=== PATIENT | female | born 1995 | race Caucasian/White ===

== ENCOUNTER → 2017-06-21 | Outpatient (CLI) | payer OTHER ==
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
== END | disposition home or self-care (01) ==
LOC: PMG 15:08
PROVIDERS: ATTEND General Practice
DX: S20.211A Contusion of right front wall of thorax, initial encounter (principal); Y08.89XA Assault by other specified means, initial encounter; Y93.89 Activity, other specified; Y92.89 Other specified places as the place of occurrence of the external cause; Y99.8 Other external cause status
CPT/HCPCS: 71100

== ENCOUNTER 2017-08-13 20:42 | Emergency (ER) | payer SELFPAY ==
[~2017-08-13] VITALS: Ht 162.6 cm; Wt 68.0 kg
[2017-08-13 21:34] LABS: BILIRUBIN,URINE NEG (NEG); CLARITY,URINE HAZY; COLOR,URINE YELLOW; GLUCOSE,URINE NEG (NEG)
[2017-08-13 21:36] LABS: NITRITE,URINE NEG (NEG); UROBILINOGEN,URINE 0.2 mg/dL (0.2 mg/dL)
[2017-08-13 21:37] LABS: BACTERIA,URINE FEW /HPF (0-FEW); RBC,URINE OCC /HPF (0-2); SQUAMOUS EPITHELIAL CELL,UR MOD /LPF; WBC,URINE OCC /HPF (0-4)
[2017-08-13] MEDS ORDERED: KETOROLAC 60 MG/2 ML VIAL. IM ONE (21:45)
--- NOTE | 2017-08-13 22:30 | PHYS DOC ---
Past History Past Medical History: No Pertinent History Past Surgical History: No Surgical History Alcohol Use: Occasionally Drug Use: None Adult General Chief Complaint Chief Complaint: ABDOMINAL PAIN HPI HPI Patient is a 22 year old female who presents with abdominal pain. The patient reports 2 week history of left lower abdominal/pelvic pain with lower back pain. Reports having abnormally short menstrual period earlier this month, 1 day rather than 4-5 which is typical for her. Reports vaginal discharge. She denies fevers/chills, nausea, vomiting, diarrhea, constipation, dysuria/ hematuria, vaginal bleeding. She denies past medical history or abdominal surgeries. Possible STD exposure, requests testing but declines treatment. Review of Systems Review of Systems Constitutional: Denies fever or chills HENT: Denies nasal congestion or sore throat Respiratory: Denies cough or shortness of breath Cardiovascular: Denies chest pain or edema GI: Reports abdominal pain, denies nausea, vomiting, bloody stools or diarrhea : Denies dysuria or hematuria Musculoskeletal: Reports back pain Integument: Denies rash or skin lesions Neurologic: Denies headache, focal weakness or sensory changes All other systems were reviewed and found to be within normal limits, except as documented in this note. Current Medications Current Medications Current Medications Medications (Trade) Dose Ordered Sig/Tri Start Time Stop Time Status Last Admin Dose Admin Ketorolac Tromethamine (Toradol) 60 mg 1X ONCE 08/13/17 21:45 08/13/17 21:46 DC 08/13/17 21:46 60 MG Allergies Allergies Allergies Coded Allergies Type Severity Reaction Last Updated Verified Penicillins Allergy Unknown 08/13/17 Yes azithromycin Allergy Unknown 08/13/17 Yes latex Allergy Unknown 08/13/17 Yes Uncoded Allergies Type Severity Reaction Last Updated Verified Controls Adverse Reaction Unknown 08/13/17 Physical Exam Physical Exam Constitutional: Well developed, well nourished, no acute distress, non-toxic appearance. HENT: Normocephalic, atraumatic, bilateral external ears normal, oropharynx moist, nose normal. Eyes: PERRLA, EOMI, conjunctiva normal, no discharge. Neck: supple, no stridor. Cardiovascular: RRR, no murmurs, no edema. Lungs & Thorax: LCTAB, no wheezing, no respiratory distress. Abdomen: soft, left lower quadrant/pelvic tenderness without rebound/guarding, no masses or pulsatile masses, otherwise nontender, nondistended. Skin: Warm, dry, no erythema, no rash. Back: No CVA tenderness. Extremities: No tenderness, no edema. Neurologic: Alert and oriented X 3, no focal deficits noted. Psychologic: Affect normal, judgement normal, mood normal. Current Patient Data Vital Signs Vital Signs Date Time Temp Pulse Resp B/P (MAP) Pulse Ox O2 Delivery O2 Flow Rate FiO2 08/13/17 20:42 88 20 100 Room Air Lab Results Laboratory Tests Test 08/13/17 20:07 08/13/17 20:50 POC Urine HCG, Qualitative hcg negative (Negative) Urine Collection Type Unknown Urine Color Yellow Urine Clarity Hazy Urine pH 7.0 Urine Specific [place] 1.020 Urine Protein Neg (NEG-TRACE) Urine Glucose (UA) Neg mg/dL (NEG) Urine Ketones (Stick) Neg mg/dL (NEG) Urine Blood Neg (NEG) Urine Nitrite Neg (NEG) Urine Bilirubin Neg (NEG) Urine Urobilinogen Dipstick 0.2 mg/dL (0.2 mg/dL) Urine Leukocyte Esterase Neg (NEG) Urine RBC Occ /HPF (0-2) Urine WBC Occ /HPF (0-4) Urine Squamous Epithelial Cells Mod /LPF Urine Bacteria Few /HPF (0-FEW) Urine Mucus Slight /LPF EKG EKG [] Radiology/Procedures Radiology/Procedures PROCEDURE: PELVIS COMPLETE EXAM: PELVIC ULTRASOUND. HISTORY: Left pelvic pain. COMPARISON: None. FINDINGS: Sonographic evaluation of the pelvis was performed transabdominally and transvaginally. The uterus is anteverted and measures 8.9 x 5.3 x 4.8 cm. The endometrial stripe measures 18 mm. No masses are identified. There is no significant free fluid. The right ovary measures 2.8 x 1.8 x 1.4 cm. The left ovary measures 4.1 x 2.1 x 2.0 cm. There is normal Doppler flow bilaterally. There are no suspicious lesions. IMPRESSION: 1. Prominent endometrium at 18 mm. This can be normal in a premenopausal patient. Correlate with the patient's menstrual cycle. 2. No cause for acute pain is identified. Electronically signed by: Basim Sandoval MD (08/14/2017 12:09 AM) [facility] DICTATED AND SIGNED BY: VIDAL SANDOVAL MD DATE: 08/14/17 0007 [] Course & Med Decision Making Course & Med Decision Making Pertinent Labs and Imaging studies reviewed. (See chart for details) The patient presents with pelvic pain. Administered Toradol for pain. Obtained UA, performed pelvic exam with cultures. Patient did not wish to be empirically treated for sexual transmitted infection. Obtained ultrasound which shows no acute pelvic pathology. Pain improved with treatment. Recommend rest, hydration , Tylenol or ibuprofen for pain, follow-up with primary care or gynecology within 2-3 days if not improving. Return to the emergency department for high fever, severe pain, uncontrolled vomiting, any otherwise worsening condition. Discharged home in stable condition. [] Dragon Disclaimer Dragon Disclaimer This electronic medical record was generated, in whole or in part, using a voice recognition dictation system. Departure Departure: Impression: Primary Impression: Pelvic pain Disposition: 01 HOME, SELF-CARE Condition: STABLE Referrals: DYLLAN MARIA APRN (PCP) Patient Instructions: Pelvic Pain, Female, [id number] Additional Instructions: You were seen in the emergency department today for pelvic pain. Tests here did not show serious cause of symptoms. Please rest, drink fluids, take Tylenol or ibuprofen for pain. Follow-up with primary care or gynecology in 2-3 days if not improving. Return to the emergency department for high fever, severe pain, uncontrolled vomiting, any otherwise worsening condition. YUMIKO JONES MD Aug 13, 2017 22:30
--- NOTE | 2017-08-14 00:12 | RAD ---
EXAM: PELVIC ULTRASOUND. HISTORY: Left pelvic pain. COMPARISON: None. FINDINGS: Sonographic evaluation of the pelvis was performed transabdominally and transvaginally. The uterus is anteverted and measures 8.9 x 5.3 x 4.8 cm. The endometrial stripe measures 18 mm. No masses are identified. There is no significant free fluid. The right ovary measures 2.8 x 1.8 x 1.4 cm. The left ovary measures 4.1 x 2.1 x 2.0 cm. There is normal Doppler flow bilaterally. There are no suspicious lesions. IMPRESSION: 1. Prominent endometrium at 18 mm. This can be normal in a premenopausal patient. Correlate with the patient's menstrual cycle. 2. No cause for acute pain is identified. Electronically signed by: Basim Sandoval MD (08/14/2017 12:09 AM) [facility]
[2017-08-14 00:39] VITALS: BP 104/50
[2017-08-15 15:10] LABS: CHLAMYDIA PROBE Negative (Negative)
== END 2017-08-14 00:39 | disposition home or self-care (01) ==
LOC: ER 20:42
DX: R10.2 Pelvic and perineal pain (principal); M54.5 Low back pain; Z88.0 Allergy status to penicillin; Z88.1 Allergy status to other antibiotic agents; Z91.040 Latex allergy status
CPT/HCPCS: 36415; 76856; 81001; 81025; 87491; 87591; 96372; 99285; J1885; Q0111

== ENCOUNTER 2017-12-27 12:30 | Emergency (ER) | payer SELFPAY ==
[2017-12-27 14:01] LABS: BACTERIA,URINE FEW /HPF (0-FEW); BILIRUBIN,URINE NEG (NEG); CLARITY,URINE HAZY; COLOR,URINE YELLOW; GLUCOSE,URINE NEG (NEG); NITRITE,URINE NEG (NEG); RBC,URINE 0 /HPF (0-2); SQUAMOUS EPITHELIAL CELL,UR FEW /LPF; UROBILINOGEN,URINE 0.2 mg/dL (0.2 mg/dL); WBC,URINE OCC /HPF (0-4)
--- NOTE | 2017-12-27 14:23 | RAD ---
Examination: Ultrasound pelvis HISTORY: History of left lower quadrant pelvic pain COMPARISON: 08/13/2017 TECHNIQUE: Transabdominal, transvaginal ultrasound examination the pelvis FINDINGS: The uterus measures 9.1 x 6.1 x 4.6 cm. The right ovary measures 2.5 x 3.6 x 1.8 cm. The left ovary measures 4.3 x 2.4 x 2.0 cm. Blood flow identified in the right and left ovaries. Follicles identified in the lateral left ovaries. The endometrium measures 1.7 cm in thickness. IMPRESSION: 1. Bilateral ovarian follicles. The thickness of the endometrium measures 1.7 cm grossly similar to prior exam could be phase of menstrual cycle. Electronically signed by: Yash Navarro MD (12/27/2017 2:19 PM) [facility]
[2017-12-27] MEDS ORDERED: cefTRIAXone IM 250 MG VIAL IM ONE (16:30)
[2017-12-27 16:34] VITALS: BP 121/80
--- NOTE | 2017-12-27 16:45 | PHYS DOC ---
Past History Past Medical History: Ovarian Cyst Past Surgical History: No Surgical History Alcohol Use: Occasionally Drug Use: None Adult General Chief Complaint Chief Complaint: PELVIC PAIN HPI HPI Patient is a 22-year-old female who presents with report of left lower adnexal pain that started 2 days ago. Patient states that she has a history of ovarian cysts. She states that this is little bit different than ovarian cysts that she has had in the past. She describes pain as sharp and stabbing in nature. She denies any abnormal vaginal discharge but does admit to unprotected intercourse with multiple sexual partners. She rates pain as moderate. She denies any urinary discomfort. She also denies any fever. Review of Systems Review of Systems Constitutional: Denies fever or chills [] Respiratory: Denies cough or shortness of breath [] Cardiovascular: Denies chest pain[] GI: Complains of left lower abdominal pain. No nausea or vomiting.[] : Denies dysuria or hematuria. Denies vaginal discharge [] Musculoskeletal: Denies back pain or joint pain [] All other systems were reviewed and found to be within normal limits, except as documented in this note. Current Medications Current Medications Current Medications Medications (Trade) Dose Ordered Sig/Tri Start Time Stop Time Status Last Admin Dose Admin Ceftriaxone Sodium (Rocephin Im) 250 mg 1X ONCE 12/27/17 16:30 12/27/17 16:31 DC Allergies Allergies Allergies Coded Allergies Type Severity Reaction Last Updated Verified Penicillins Allergy Unknown 08/13/17 Yes azithromycin Allergy Unknown 08/13/17 Yes latex Allergy Unknown 08/13/17 Yes Uncoded Allergies Type Severity Reaction Last Updated Verified Controls Adverse Reaction Unknown 08/13/17 Physical Exam Physical Exam Constitutional: Well developed, well nourished, no acute distress, non-toxic appearance. [] HENT: Normocephalic, atraumatic, bilateral external ears normal, oropharynx moist, no oral exudates, nose normal. [] Eyes: PERRLA, EOMI, conjunctiva normal, no discharge. [] Neck: Normal range of motion, no tenderness, supple, no stridor. [] Cardiovascular:Heart rate regular rhythm, no murmur [] Lungs & Thorax: Bilateral breath sounds clear to auscultation [] Abdomen: Bowel sounds normal, soft, with left adnexal tenderness. [] Skin: Warm, dry, no erythema, no rash. [] Back: No tenderness, no CVA tenderness. [] Extremities: No tenderness, no cyanosis, no clubbing, ROM intact, no edema. [] Neurologic: Alert and oriented X 3, normal motor function, normal sensory function, no focal deficits noted. [] Current Patient Data Vital Signs Vital Signs Date Time Temp Pulse Resp B/P (MAP) Pulse Ox O2 Delivery O2 Flow Rate FiO2 12/27/17 15:17 73 18 113/59 (77) 99 12/27/17 13:27 Room Air 12/27/17 12:45 98.3 Lab Results Laboratory Tests Test 12/27/17 12:57 12/27/17 13:38 POC Urine HCG, Qualitative hcg negative (Negative) Urine Collection Type Unknown Urine Color Yellow Urine Clarity Hazy Urine pH 7.0 Urine Specific [place] 1.020 Urine Protein Neg (NEG-TRACE) Urine Glucose (UA) Neg mg/dL (NEG) Urine Ketones (Stick) Neg mg/dL (NEG) Urine Blood Neg (NEG) Urine Nitrite Neg (NEG) Urine Bilirubin Neg (NEG) Urine Urobilinogen Dipstick 0.2 mg/dL (0.2 mg/dL) Urine Leukocyte Esterase Neg (NEG) Urine RBC 0 /HPF (0-2) Urine WBC Occ /HPF (0-4) Urine Squamous Epithelial Cells Few /LPF Urine Bacteria Few /HPF (0-FEW) Urine Mucus Mod /LPF EKG EKG [] Radiology/Procedures Radiology/Procedures [] Impressions: Ultrasound demonstrates no acute abnormalities. Course & Med Decision Making Course & Med Decision Making Pertinent Labs and Imaging studies reviewed. (See chart for details) [] Dragon Disclaimer Dragon Disclaimer This electronic medical record was generated, in whole or in part, using a voice recognition dictation system. Departure Departure: Impression: Primary Impression: Pelvic pain Disposition: HOME, SELF-CARE Condition: STABLE Referrals: PCP,NO (PCP) Patient Instructions: Pelvic Pain, Female Additional Instructions: Take prescribed medications as directed and follow-up with your primary care provider in the next few days. LAUREANO BOLAND Jr. DO Dec 27, 2017 16:45
== END 2017-12-27 16:53 | disposition home or self-care (01) ==
LOC: ER 12:30
DX: R10.2 Pelvic and perineal pain (principal); R10.32 Left lower quadrant pain; Z88.0 Allergy status to penicillin; Z88.1 Allergy status to other antibiotic agents; Z91.040 Latex allergy status
CPT/HCPCS: 76830; 76856; 81001; 81025; 96372; 99285; J0696

== ENCOUNTER 2018-01-10 15:06 | Emergency (ER) | payer SELFPAY ==
[~2018-01-10] VITALS: Ht 162.6 cm; Wt 61.3 kg
[2018-01-10 15:06] VITALS: BP 128/71
--- NOTE | 2018-01-10 15:43 | PHYS DOC ---
Past History Past Medical History: Ovarian Cyst Past Surgical History: No Surgical History Smoking: Non-smoker Alcohol Use: Occasionally Drug Use: Marijuana, Methamphetamine Adult General Chief Complaint Chief Complaint: drug Use HPI HPI Patient is a 22-year-old female who presents complaining of problem after using methamphetamine and weed. Patient states she has had nausea and decrease of uptight for 2 months with losing weight. Patient states she took methamphetamine starting 3 days ago and stopping last night with taking marijuana last night and complaining of nausea, chest pain, headache, delusion and hearing voices since then. Patient states she was not able to urinate for the last 15 hours and denies and urinary symptom before last night. Patient denies suicidal and homicidal ideation and having the same problem previously. Review of Systems Review of Systems Constitutional: Denies fever or chills [] Eyes: Denies change in visual acuity, redness, or eye pain [] HENT: Denies nasal congestion or sore throat [] Respiratory: Denies cough or shortness of breath [] Cardiovascular: No additional information not addressed in HPI [] GI: Denies abdominal pain, vomiting, bloody stools or diarrhea, reports nausea [] : Denies dysuria or hematuria [, reports anuria] Musculoskeletal: Denies back pain or joint pain [] Integument: Denies rash or skin lesions [] Neurologic: Denies headache, focal weakness or sensory changes [] Endocrine: Denies polyuria or polydipsia [] All other systems were reviewed and found to be within normal limits, except as documented in this note. Allergies Allergies Allergies Coded Allergies Type Severity Reaction Last Updated Verified Penicillins Allergy Unknown 08/13/17 Yes azithromycin Allergy Unknown 08/13/17 Yes latex Allergy Unknown 08/13/17 Yes Uncoded Allergies Type Severity Reaction Last Updated Verified Controls Adverse Reaction Unknown 08/13/17 Physical Exam Physical Exam Constitutional: Well developed, well nourished, mild distress, non-toxic appearance. [] HENT: Normocephalic, atraumatic, oropharynx moist, no oral exudates, nose normal. [] Eyes: PERRLA, EOMI, conjunctiva normal, no discharge. [] Neck: Normal range of motion, no tenderness, supple, no stridor. [] Cardiovascular:Heart rate regular rhythm, no murmur [] Lungs & Thorax: Bilateral breath sounds clear to auscultation [] Abdomen: Bowel sounds normal, soft, no tenderness, no masses, no pulsatile masses. [] Skin: Warm, dry, no erythema, no rash. [] Back: No tenderness, no CVA tenderness. [] Extremities: No tenderness, no cyanosis, no clubbing, ROM intact, no edema. [] Neurologic: Alert and oriented X 3, normal motor function, normal sensory function, no focal deficits noted. [] Psychologic: Affect anxious, judgement normal, mood normal. [] EKG EKG [] Radiology/Procedures Radiology/Procedures [] Course & Med Decision Making Course & Med Decision Making Evaluation of patient in ER showed 22-year-old female patient with complaining of hallucination and chest pain and headache after taking methamphetamine and marijuana. Patient left without signing AMA before having any tenderness. Dragon Disclaimer Dragon Disclaimer This electronic medical record was generated, in whole or in part, using a voice recognition dictation system. Departure Departure: Impression: Primary Impression: Methamphetamine abuse Additional Impression: Marijuana abuse Disposition: 07 AGAINST MEDICAL ADVICE (@[id number]) Referrals: PCP,NO (PCP) Problem Qualifiers KINGS CONTRERAS MD Jan 10, 2018 15:43
== END 2018-01-10 15:25 | disposition left against medical advice (07) ==
LOC: ER 15:06
DX: F15.10 Other stimulant abuse, uncomplicated (principal); F12.10 Cannabis abuse, uncomplicated; Z88.1 Allergy status to other antibiotic agents; Z88.0 Allergy status to penicillin; Z91.040 Latex allergy status
CPT/HCPCS: 99281

== ENCOUNTER 2018-03-16 21:24 | Emergency (ER) | payer SELFPAY ==
[~2018-03-16] VITALS: Ht 162.6 cm; Wt 56.7 kg
[2018-03-16 21:40] VITALS: BP 138/85
--- NOTE | 2018-03-16 22:27 | PHYS DOC ---
Past History Past Medical History: Ovarian Cyst Past Surgical History: No Surgical History Smoking: Non-smoker Alcohol Use: Occasionally Drug Use: Marijuana, Methamphetamine Adult General Chief Complaint Chief Complaint: MULTIPLE COMPLAINTS HPI HPI Patient is a 23 year old female who presents with multiple complaints. The patient states that she has been experiencing pain along the left side of her abdomen and has noticed a lump over the past 2 months. Patient states that this lump is tender. She states that his remained in the same area since onset. It is tender to palpation. Denies any recent trauma. Has not taken any medications for her symptoms. Patient notes that she is currently homeless. The patient states that she has not been eating well and has lost approximately 40 pounds over the past several months due to malnutrition. History of drug use. Patient also notes that she has had yellowish discharge over the past few days. Patient recently was diagnosed with urinary tract infection approximately 3 weeks ago, however she states that she was unable to fill the anabiotic due to cost. Patient is concerned as she has lower back pain which she is had with previous urinary tract infections. Denies any trauma to her back. Denies any numbness or tingling into the lower extremities. Denies any sexual contact in the last month but does state that she is concerned she may have an ongoing sexually transmitted infection that could be causing her discharge. Review of Systems Review of Systems Constitutional: Denies fever or chills [] Eyes: Denies change in visual acuity, redness, or eye pain [] HENT: Denies nasal congestion or sore throat [] Respiratory: Denies cough or shortness of breath [] Cardiovascular: Denies chest pain or edema[] GI: Left-sided abdominal pain, denies nausea, vomiting, bloody stools or diarrhea [] : Vaginal discharge[] Musculoskeletal: Low back pain[] Integument: Denies rash or skin lesions [] Neurologic: Denies headache, focal weakness or sensory changes [] All other systems were reviewed and found to be within normal limits, except as documented in this note. Allergies Allergies Allergies Coded Allergies Type Severity Reaction Last Updated Verified Penicillins Allergy Unknown 08/13/17 Yes azithromycin Allergy Unknown 08/13/17 Yes latex Allergy Unknown 08/13/17 Yes Uncoded Allergies Type Severity Reaction Last Updated Verified Controls Adverse Reaction Unknown 08/13/17 Physical Exam Physical Exam Constitutional: Alert, afebrile, no acute distress. [] HENT: Normocephalic, atraumatic, bilateral external ears normal, oropharynx moist, no oral exudates, nose normal. [] Eyes: PERRLA, EOMI, conjunctiva normal, no discharge. [] Neck: Normal range of motion, no tenderness, supple, no stridor. [] Cardiovascular:Heart rate regular rhythm, no murmur [] Lungs & Thorax: Bilateral breath sounds clear to auscultation [] Abdomen: Bowel sounds normal, soft, 2 cm abdominal lesion in the left upper quadrant just below the spleen that moves with manipulation of the floating ribs , tender to palpation, no masses, no pulsatile masses. [] : Normal external exam, copious amount of yellowish vaginal discharge, no cervical inflammation. Skin: Warm, dry, no erythema, no rash. [] Back: No tenderness, no CVA tenderness. [] Extremities: No tenderness, no cyanosis, no clubbing, ROM intact, no edema. [] Neurologic: Alert and oriented X 3, normal motor function, normal sensory function, no focal deficits noted. [] Current Patient Data Vital Signs Vital Signs Date Time Temp Pulse Resp B/P (MAP) Pulse Ox O2 Delivery O2 Flow Rate FiO2 03/16/18 21:40 98.6 80 18 100 Room Air Lab Results Laboratory Tests Test 03/16/18 21:54 POC Urine HCG, Qualitative hcg negative (Negative) EKG EKG Not performed[] Radiology/Procedures Radiology/Procedures Not performed[] Course & Med Decision Making Course & Med Decision Making Pertinent Labs and Imaging studies reviewed. (See chart for details) Urinalysis is negative for infection. Wet prep positive for bacterial vaginosis. Patient started on oral Flagyl. Cultures pending at time of disposition. We'll continue patient on seven-day course of Flagyl for treatment of bacterial vaginosis. The patient's "lump" appears to be the distal end of her floating rib. There are no masses or abnormality with the ribs on x-ray. I feel that the patient's recent weight loss may have a direct effect on this and advised that the patient be sure to eat regular meals. Recommended follow-up with patient's primary provider in one week for reevaluation. Recommended return to emergency department for any worsening symptoms. Patient was understanding and agreement with treatment plan. Dragon Disclaimer Dragon Disclaimer This electronic medical record was generated, in whole or in part, using a voice recognition dictation system. Departure Departure: Impression: Primary Impression: Bacterial vaginosis Additional Impression: Rib pain on left side Disposition: HOME, SELF-CARE Condition: IMPROVED Referrals: PCPYARA (PCP) Patient Instructions: Bacterial Vaginosis, Hepatitis C Additional Instructions: Follow-up with the health Department in one week as planned. Be sure to complete your antibiotic as prescribed for treatment of your condition. You have been provided with information regarding hepatitis C as requested. Return to emergency department for any worsening symptoms. Scripts Metronidazole (FLAGYL) 500 Mg Tablet 1 TAB PO BID, #14 TAB Prov: JOEY MILLER MD 03/16/18 Problem Qualifiers JOEY MILLER MD Mar 16, 2018 22:27
[2018-03-16 22:35] LABS: BILIRUBIN,URINE NEG (NEG); CLARITY,URINE CLEAR; COLOR,URINE YELLOW; GLUCOSE,URINE NEG (NEG); NITRITE,URINE NEG (NEG); RBC,URINE 0 /HPF (0-2); UROBILINOGEN,URINE 0.2 mg/dL (0.2 mg/dL)
[2018-03-16 22:36] LABS: BACTERIA,URINE 0 /HPF (0-FEW); SQUAMOUS EPITHELIAL CELL,UR FEW /LPF
[2018-03-16] MEDS ORDERED: ACETAMINOPHEN 325 MG TABLET PO ONE (23:00)
[2018-03-16] MEDS ORDERED: IBUPROFEN 400 MG TABLET. PO ONE (23:00)
[2018-03-16] MEDS ORDERED: METR500T PO (23:58)
[2018-03-17] MEDS ORDERED: metroNIDAZOLE 500 MG TABLET PO ONE
--- NOTE | 2018-03-17 08:43 | RAD ---
Examination: RIBS LEFT AND PA CHEST History: Left lower rib pain today, no trauma Comparison/Correlation: None Findings: Total of 4 images of the left RIBS including PA view of the chest were provided. Heart size and pulmonary vasculature are normal. No infiltrate or pleural effusion. Levo convexed scoliosis of the low thoracic and upper lumbar spine is evident. Left ribs are intact with no displaced fracture. Impression: Left ribs are intact with no fracture. No infiltrate. Scoliosis. Electronically signed by: Reuben Cotter MD (03/17/2018 8:40 AM) [facility]
[2018-03-19 15:07] LABS: CHLAMYDIA PROBE Negative (Negative)
== END 2018-03-17 00:04 | disposition home or self-care (01) ==
LOC: ER 21:24
DX: N76.0 Acute vaginitis (principal); B96.89 Other specified bacterial agents as the cause of diseases classified elsewhere; R07.81 Pleurodynia; M54.5 Low back pain; Z87.440 Personal history of urinary (tract) infections; Z59.0 Homelessness; Z88.0 Allergy status to penicillin; Z88.1 Allergy status to other antibiotic agents; Z91.040 Latex allergy status
CPT/HCPCS: 71101; 81001; 81025; 99285; Q0111; 36415; 87491; 87591

== ENCOUNTER 2020-06-05 18:58 | Emergency (ER) | payer SELFPAY ==
[~2020-06-05] VITALS: Ht 162.6 cm; Wt 71.0 kg
[~2020-06-05 18:58] MED LIST: METR500T PO
[2020-06-05] MEDS ORDERED: LIDOCAINE 1% Multi-Dose 20 ML VIAL. SQ ONE (19:15)
[2020-06-05] MEDS ORDERED: DIPH,PERTUSS(ACELL),TET VAC/PF 0.5 ML SYRINGE. VAX IM ONE ×2 (19:28→19:30)
[2020-06-05] MEDS ORDERED: NEOMY/BACITR/POLYMYXIN OINT PACKET. TP ONE (20:00)
--- NOTE | 2020-06-05 20:09 | PHYS DOC ---
Past History Past Medical History: Depression, Ovarian Cyst (RASHID FORD APRN) Past Surgical History: No Surgical History (RASHID FORD APRN) Smoking: Non-smoker Alcohol Use: Occasionally Drug Use: Marijuana, Methamphetamine (RASHID FORD APRN) General Adult EDM: Chief Complaint: LACERATION/AVULSION HPI: HPI: Patient is a 25-year-old female who presents emergency department with complaints of a laceration to the lateral left thumb. Patient states that she tried to catch a piece of broken mirror as it fell and that is how she cut her hand. She denies any decreased sensation or alteration in range of motion of the affected except digit. She is unsure when her last tetanus shot was. At this moment she denies any pain. (RASHID FORD APRN) Review of Systems: Review of Systems: Complete ROS is negative unless otherwise noted in HPI. (RASHID FORD APRN) Current Medications: Current Meds: Current Medications Medications (Trade) Dose Ordered Sig/Tri Start Time Stop Time Status Last Admin Dose Admin Diphtheria/ Pertussis/Tetanus Vacc (ADACEL TDap SYRINGE) 0.5 ml ONCE ONCE 06/05/20 19:30 06/05/20 19:36 DC 06/05/20 19:35 0.5 ML Lidocaine HCl 20 ml 1X ONCE 06/05/20 19:15 06/05/20 19:36 DC Neomycin/ Polymyxin/ Bacitracin (Triple Antibiotic Ointment) 1 pkt 1X ONCE 06/05/20 20:00 06/05/20 20:01 DC (RASHID FORD APRN) Allergies: Allergies: Allergies Coded Allergies Type Severity Reaction Last Updated Verified Penicillins Allergy Intermediate 03/16/18 Yes azithromycin Allergy Intermediate 03/16/18 Yes ethinyl estradiol Allergy Intermediate 03/16/18 Yes latex Allergy Intermediate 03/16/18 Yes norethindrone Allergy Intermediate 03/16/18 Yes amoxicillin Allergy Unknown 06/05/20 Yes (RASHID FORD APRN) Physical Exam: PE: See Above Constitutional: Well developed, well nourished, no acute distress, non-toxic appearance. [] HENT: Normocephalic, atraumatic, bilateral external ears normal, nose normal. [] Eyes: PERRLA, EOMI, conjunctiva normal, no discharge. [] Neck: Normal range of motion, no stridor. [] Cardiovascular:Heart rate regular rhythm Lungs & Thorax: Respirations even and unlabored, no retractions, no respiratory distress Skin: Warm, dry, no erythema, no rash; 3 cm stellate laceration to the lateral proximal left thumb bleeding controlled with being in place, no visible foreign body.. [] Extremities: Left thumb: Full extension and flexion, normal sensation, no cyanosis, ROM intact, no edema. [] Neurologic: Alert and oriented X 3, no focal deficits noted. [] Psychologic: Affect normal, judgement normal, mood normal. [] (RSAHID FORD APRN) EKG: EKG: [] (RASHID FORD APRN) Radiology/Procedures: Radiology/Procedures: Laceration Repair by me: Anesthesia: 1% lidocaine locally Location: Left thumb Tendon/Joint/Nerves: No injury Foreign body: None detected after copious irrigation and exploration with NS and chlorhexidine Technique: 7 simple Interrupted Sutures with 4-0 Ethilon Complexity: No subcutaneous sutures/mucosal repair/edge excision Post Closure Length: 3 cm Patient's bleeding was easily controlled in the department and there is no indication of anemia. No evidence of compartment syndrome, neurologic injury, vascular injury, open joint, tendon laceration, or foreign body. Patient is appropriate for outpatient follow up. Scar minimazation instructions given. [] [] (RASHID FORD APRN) Heart Score: Risk Factors: Risk Factors: DM, Current or recent (<one month) smoker, HTN, HLP, family hi story of CAD, obesity. Risk Scores: Score 0 - 3: 2.5% MACE over next 6 weeks - Discharge Home Score 4 - 6: 20.3% MACE over next 6 weeks - Admit for Clinical Observation Score 7 - 10: 72.7% MACE over next 6 weeks - Early Invasive Strategies (RASHID FORD APRN) Course & Med Decision Making: Course & Med Decision Making Pertinent Labs and Imaging studies reviewed. (See chart for details) [] (RASHID FORD APRN) Dragon Disclaimer: Dragon Disclaimer: This electronic medical record was generated, in whole or in part, using a voice recognition dictation system. (RASHID FORD APRN) Departure Departure: Impression: Primary Impression: Laceration of left thumb without complication Qualified Codes: S61.012A - Laceration without foreign body of left thumb without damage to nail, initial encounter Additional Impression: Need for Tdap vaccination Disposition: 01 DC HOME SELF CARE/HOMELESS Condition: STABLE Referrals: FESTUS CALHOUN DO (PCP) Patient Instructions: Laceration Care, Adult, [id number] Additional Instructions: Keep the area clean and dry. You may take Tylenol or ibuprofen as needed for pain. Keep the dressing that was placed today on for 24 hours then change the dressing twice a day and apply antibiotic ointment to the area. Follow-up with your primary care doctor, or return to the emergency room in 10-14 days to have the sutures removed, sooner if you develop signs of infection including: redness, warmth, drainage, or a fever. Attending Signature Attending Signature I have participated in the care of this patient and I have reviewed and agree with all pertinent clinical information above including history, exam, and recommendations. (CLARY SPEAR MD) RASHID FORD APRN Jun 05, 2020 20:09 CLARY SPEAR MD Jun 06, 2020 02:27
== END 2020-06-05 20:15 | disposition home or self-care (01) ==
LOC: ER 18:58
DX: S61.012A Laceration without foreign body of left thumb without damage to nail, initial encounter (principal); F32.9 Major depressive disorder, single episode, unspecified; Z88.0 Allergy status to penicillin; Z88.1 Allergy status to other antibiotic agents; Z91.040 Latex allergy status; Z88.8 Allergy status to other drugs, medicaments and biological substances; W25.XXXA Contact with sharp glass, initial encounter; Y93.89 Activity, other specified; Y92.89 Other specified places as the place of occurrence of the external cause; Y99.8 Other external cause status
CPT/HCPCS: 12002; 90471; 90715; 99283

== ENCOUNTER 2021-01-14 11:33 | Emergency (ER) | payer SELFPAY ==
[~2021-01-14] VITALS: Ht 162.6 cm; Wt 71.0 kg
[2021-01-14 12:25] VITALS: BP 106/75
[2021-01-14] MEDS ORDERED: IV NORMAL SALINE 1,000ML 1,000 ML IV ONE (14:30)
--- NOTE | 2021-01-14 14:34 | PHYS DOC ---
Past History Past Medical History: Depression, Ovarian Cyst (RICH LOPEZ APRN) Past Surgical History: No Surgical History (RICH LOPEZ APRN) Smoking: Non-smoker Alcohol Use: Occasionally Drug Use: Marijuana, Methamphetamine (RICH LOPEZ APRN) Adult General Chief Complaint Chief Complaint: ABSCESS HPI HPI Patient is a 25 old female patient presents with abscess to her face. Patient states she had one on her forehead which started couple days ago, however she has had 1 session on her right side of her face earlier today that has gotten a lot larger and more swollen. States she has not had any fevers however she has felt little bit of chills and some weakness. States she has had several abscesses in the past, she does admit to IV drug use. States she had one previously in her hand, she had taken in the Augmentin for that and is gone away however this has been several weeks ago. She says she has not taken anything for what is on her forehead at this time, she had talked to a friend who recommended she be evaluated in the emergency room. Denies any visual changes. Denies any nausea, vomiting. Denies any chest pain. (RICH LOPEZ APRN) Review of Systems Review of Systems Constitutional: Denies fever or chills [] reports malaise Eyes: Denies change in visual acuity, redness, or eye pain [] HENT: Denies nasal congestion or sore throat [] Respiratory: Denies cough or shortness of breath [] Cardiovascular: No additional information not addressed in HPI [] denies chest pain GI: Denies abdominal pain, nausea, vomiting, bloody stools or diarrhea [] : Denies dysuria or hematuria [] Musculoskeletal: Denies back pain or joint pain [] Integument: Denies rash [] reports skin lesions to her right adventist, and forehead Neurologic: Denies headache, focal weakness or sensory changes [] Endocrine: Denies polyuria or polydipsia [] All other systems were reviewed and found to be within normal limits, except as documented in this note. (RICH LOPEZ APRN) Current Medications Current Medications Current Medications Medications (Trade) Dose Ordered Sig/Tri Start Time Stop Time Status Last Admin Dose Admin Ceftriaxone Sodium 1 gm/ Sodium Chloride 50 ml @ 100 mls/hr 1X ONCE 01/14/21 14:30 01/14/21 14:59 UNV Sodium Chloride 1,000 ml @ 1,000 mls/hr 1X ONCE 01/14/21 14:30 01/14/21 15:29 UNV (RICH LOPEZ APRN) Allergies Allergies Allergies Coded Allergies Type Severity Reaction Last Updated Verified Penicillins Allergy Intermediate 03/16/18 Yes azithromycin Allergy Intermediate 03/16/18 Yes ethinyl estradiol Allergy Intermediate 03/16/18 Yes latex Allergy Intermediate 03/16/18 Yes norethindrone Allergy Intermediate 03/16/18 Yes amoxicillin Allergy Unknown 06/05/20 Yes (RICH LOPEZ APRN) Physical Exam Physical Exam Constitutional: Well developed, well nourished, no acute distress, non-toxic appearance. [] HENT: Normocephalic, atraumatic, bilateral external ears normal, oropharynx moist, no oral exudates, nose normal. [] Eyes: PERRLA, EOMI, conjunctiva normal, no discharge. [] Swelling noted periorbitally to right eye, affecting adventist and eyelid. Full range of motion to eye, no signs of entrapment, no eye tenderness surrounding. Swelling fluctuant without mass. No bruising noted surrounding. Visual acuity intact. Neck: Normal range of motion, no tenderness, supple, no stridor. [] Cardiovascular:Heart rate regular rhythm, no murmur [] Lungs & Thorax: Bilateral breath sounds clear to auscultation [] Abdomen: Bowel sounds normal, soft, no tenderness, no masses, no pulsatile masses. [] Skin: Warm, dry, no erythema, no rash. [] 2 cm diameter swollen area noted to central forehead with approximately 1 cm scabbed erythematous lesion, no surrounding erythema, no streaking. Right adventist noted approximately 12 cm diameter, 1 cm raised soft fluctuant area extending periorbitally to right adventist region. No underlying erythema, small scab lesion to lateral portion along adventist, no purulence, no warmth noted. Back: No tenderness, no CVA tenderness. [] Extremities: No tenderness, no cyanosis, no clubbing, ROM intact, no edema. [] Neurologic: Alert and oriented X 3, normal motor function, normal sensory function, no focal deficits noted. [] Psychologic: Affect normal, judgement normal, mood normal. [] (RICH LOPEZ APRN) Current Patient Data Vital Signs Vital Signs Date Time Temp Pulse Resp B/P (MAP) Pulse Ox O2 Delivery O2 Flow Rate FiO2 01/14/21 12:25 98.3 77 16 106/75 98 Room Air (RICH LOPEZ APRN) EKG EKG [] (RICH LOPEZ APRN) Radiology/Procedures Radiology/Procedures []PATIENT: JOHAN GUTIERREZ MACCOUNT: [id number]#: [id number] : 1995 LOCATION: ER AGE: 25 SEX: F EXAM STATUS: REG ER ORD. PHYSICIAN: RICH LOPEZ APRN REASON: RIGHT ORBITAL SWELLING, WORSENING PROCEDURE: CT ORBITS W/CONTRAST CT ORBITS/SELLA WITH IV CONTRAST History: Reason: RIGHT ORBITAL SWELLING, WORSENING / Spl. Instructions: / History: Comparison: None. Technique: Noncontrast CT imaging was performed of the orbits. Coronal and sagittal reconstructions were performed. Exposure: One or more of the following individualized dose reduction techniques were utilized for this examination: 1. Automated exposure control 2. Adjustment of the mA and/or kV according to patient size 3. Use of iterative reconstruction technique. Findings: Right preseptal periorbital and more prominent lateral facial soft tissue swelling. No loculated fluid collection to suggest abscess. Symmetric appearance of the globes, extraocular muscles and optic nerve sheaths. No retro-orbital involvement. Paranasal sinuses and mastoid air cells are clear. Imaged intracranial contents are unremarkable. Impression: 1. Right lateral facial soft tissue swelling. No loculated fluid collection to suggest abscess. Recommend follow-up if indicated. Electronically signed by: Paul Yanes DO (01/14/2021 4:00 PM) [id number] DICTATED AND SIGNED BY: PAUL YANES DO DATE: 01/14/21 1547 CC: RAJEEV GUERRA DO; FESTUS CALHOUN DO; RICH LOPEZ APRN ~MTH0 0 (RICH LOPEZ APRN) Heart Score C/O Chest Pain: N/A Risk Factors: Risk Factors: DM, Current or recent (<one month) smoker, HTN, HLP, family history of CAD, obesity. Risk Scores: Risk Factors: DM, Current or recent (<one month) smoker, HTN, HLP, family history of CAD, obesity. (RICH LOPEZ APRN) Course & Med Decision Making Course & Med Decision Making Pertinent Labs and Imaging studies reviewed. (See chart for details) Given swelling around right side of face, with history of IV drug use, will do imaging at this time to rule out periorbital cellulitis. Area fluctuant, without abscess noted, considerations include underlying abscess, cellulitis, periorbital cellulitis, trauma. []Reviewed imaging and lab findings, without signs of sepsis, no abscess. LIkely cellulitis to facial. No orbital cellulitis on imaging. Will plan to discharge on PO antibiotics. She has taken augmentin in the past, has no issues taking augmentin she reports (RICH LOPEZ APRN) Course & Med Decision Making I was the Attending physician on the above date of service of this patient. This patient was evaluated, examined, treated, and dispositioned from the emergency department by the mid-level practitioner. Although I was working at the time , no assistance was requested. Electronically signed, Rajeev Guerra DO (RAJEEV GUERRA DO) May Disclaimer Dragon Disclaimer This electronic medical record was generated, in whole or in part, using a voice recognition dictation system. (RICH LOPEZ APRN) Departure Departure: Impression: Primary Impression: Cellulitis and abscess of face Disposition: HOME / SELF CARE / HOMELESS Condition: STABLE Referrals: FESTUS CALHOUN DO (PCP) Patient Instructions: Cellulitis Additional Instructions: As discussed, there is no signs of an abscess needing drainage at this time. Make sure you take the antibiotic as prescribed for the entire duration You can apply ice over the area to help with the swelling Make sure you try to avoid scratching at areas to the point of causing bleeding or sores. Scripts Amoxicillin/Potassium Clav (AUGMENTIN 875-125 TABLET) 1 Each Tablet 1 TAB PO BID for infectious process for 10 Days, #20 TAB 0 Refills Prov: RICH LOPEZ APRN 01/14/21 RICH LOPEZ APRN Jan 14, 2021 14:34 RAJEEV GUERRA DO Jan 15, 2021 06:49
[2021-01-14] MEDS ORDERED: IOHEXOL 300 MG/ML 75 ML VIAL. IV ONE (14:45)
[2021-01-14 15:12] LABS: BASO % 0 % (0-3); EOS # 0.2 x10^3/uL (0.0-0.7); EOS % 2 % (0-3); HEMATOCRIT 35.1 % (36.0-47.0); HEMOGLOBIN 11.6 g/dL (12.0-15.5); LYMPH # 1.8 x10^3/uL (1.0-4.8); LYMPH % 18 % (24-48); MEAN CORPUSCULAR HEMOGLOBIN 28 pg (25-35); MEAN CORPUSCULAR HGB CONC 33 g/dL (31-37); MEAN CORPUSCULAR VOLUME 85 fL (79-100); MONO # 0.7 x10^3/uL (0.0-1.1); MONO % 7 % (0-9); NEUT # 7.3 x10^3uL (1.8-7.7); NEUT % 72 % (31-73); PLATELET COUNT 265 x10^3/uL (140-400); RED BLOOD COUNT 4.13 x10^6/uL (3.50-5.40); RED CELL DISTRIBUTION WIDTH 15.2 % (11.5-14.5); WHITE BLOOD COUNT 10.1 x10^3/uL (4.0-11.0)
[2021-01-14 15:15] LABS: CALCIUM 8.3 mg/dL (8.5-10.1); CREATININE 0.6 mg/dL (0.6-1.0); GFR 122.8; POTASSIUM 3.8 mmol/L (3.5-5.1)
[2021-01-14 15:21] LABS: ALBUMIN 3.5 g/dL (3.4-5.0); ALBUMIN/GLOBULIN RATIO 0.8 (1.0-1.7); MAGNESIUM 2.2 mg/dL (1.8-2.4); TOTAL BILIRUBIN 0.9 mg/dL (0.2-1.0)
[2021-01-14] MEDS ORDERED: IV NORMAL SALINE 50ML 50 ML ONE (15:59)
[2021-01-14] MEDS ORDERED: cefTRIAXone SODIUM 1 GM VIAL ONE (15:59)
--- NOTE | 2021-01-14 16:02 | RAD ---
CT ORBITS/SELLA WITH IV CONTRAST History: Reason: RIGHT ORBITAL SWELLING, WORSENING / Spl. Instructions: / History: Comparison: None. Technique: Noncontrast CT imaging was performed of the orbits. Coronal and sagittal reconstructions w ere performed. Exposure: One or more of the following individualized dose reduction techniques were utilized for thi s examination: 1. Automated exposure control 2. Adjustment of the mA and/or kV according to patient size 3. Use of iterative reconstruction technique. Findings: Right preseptal periorbital and more prominent lateral facial soft tissue swelling. No loculated flu id collection to suggest abscess. Symmetric appearance of the globes, extraocular muscles and optic nerve sheaths. No retro-orbital inv olvement. Paranasal sinuses and mastoid air cells are clear. Imaged intracranial contents are unremarkable. Impression: 1. Right lateral facial soft tissue swelling. No loculated fluid collection to suggest abscess. Luis mmend follow-up if indicated. Electronically signed by: Paul Yanes DO (01/14/2021 4:00 PM) [id number]
[2021-01-14] MEDS ORDERED: AMOX1TAB61 PO (16:15)
== END 2021-01-14 16:40 | disposition home or self-care (01) ==
LOC: ER 11:33
DX: L03.211 Cellulitis of face (principal); F12.10 Cannabis abuse, uncomplicated; F15.10 Other stimulant abuse, uncomplicated; Z88.0 Allergy status to penicillin; Z88.1 Allergy status to other antibiotic agents; Z91.040 Latex allergy status
CPT/HCPCS: 36415; 70481; 80053; 81025; 83605; 83735; 85025; 87040; 96365; 99285; J0696; J7030; Q9967

== ENCOUNTER 2021-01-16 19:30 | Emergency (ER) | payer SELFPAY ==
[~2021-01-16] VITALS: Ht 162.6 cm; Wt 70.3 kg
[~2021-01-16 19:30] MED LIST changes: +AMOX1TAB61 PO
[2021-01-16] MEDS ORDERED: CLIN300C9 PO (20:00)
[2021-01-16] MEDS ORDERED: CLINDAMYCIN 600MG PREMIX 50 ML IV ONE (20:00)
[2021-01-16] MEDS ORDERED: MORPHINE SULFATE 4 MG/ML DISP.SYRIN. IV ONE (20:00)
[2021-01-16] MEDS ORDERED: VANCOMYCIN 2 GM in IV NORMAL SALINE 500ML 500 ML IV ONE (20:00)
--- NOTE | 2021-01-16 20:01 | PHYS DOC ---
Past History Past Medical History: Depression, Ovarian Cyst Past Surgical History: No Surgical History Smoking: Non-smoker Alcohol Use: Occasionally Drug Use: Marijuana, Methamphetamine Adult General HPI HPI Patient is a 25-year-old female who presents with a chief complaint of right- sided facial swelling. States he was here in the emergency department 2 days ago for the same thing, and was prescribed Augmentin and has been taking it as prescribed but her swelling, and pain has gotten worse. States that it is 7 out of 10, dull and achy in nature. Denies headache, changes in vision, neck pain, chest pain, shortness of breath, abdominal pain, nausea, vomiting. Denies any changes in vision. States she is an IV drug user and has had a history of MRSA in the past. Review of Systems Review of Systems Review of systems otherwise unremarkable except noted in HPI Allergies Allergies Allergies Coded Allergies Type Severity Reaction Last Updated Verified Penicillins Allergy Intermediate 03/16/18 Yes azithromycin Allergy Intermediate 03/16/18 Yes ethinyl estradiol Allergy Intermediate 03/16/18 Yes latex Allergy Intermediate 03/16/18 Yes norethindrone Allergy Intermediate 03/16/18 Yes amoxicillin Allergy Unknown 06/05/20 Yes Physical Exam Physical Exam Constitutional: Well developed, well nourished, no acute distress, non-toxic appearance. [] HENT: Normocephalic, atraumatic, bilateral external ears normal, oropharynx moist, no oral exudates, nose normal, right temporal erythema, and swelling with some excoriations. [] Eyes: Right sided periorbital erythema, edema, conjunctiva normal, no discharge, extraocular movements intact, PERRLA. [] Neck: Normal range of motion, no tenderness, supple, no stridor. [] Cardiovascular:Heart rate regular rhythm, no murmur [] Lungs & Thorax: Bilateral breath sounds clear to auscultation [] Abdomen: soft, no tenderness, no masses, no pulsatile masses. [] Skin: Warm, dry, no erythema, no rash. [] Extremities: No tenderness, ROM intact, no edema. [] Neurologic: Alert and oriented X 3, no focal deficits noted. [] Psychologic: Affect normal, judgement normal, mood normal. [] EKG EKG [] Radiology/Procedures Radiology/Procedures [] CT maxillofacial with contrast dated 01/08/2021. No comparison available. CLINICAL INDICATION: Right-sided periorbital edema and cellulitis. Chills. TECHNIQUE: Contiguous axial imaging the maxillofacial bones obtained following the intravenous demonstration of 70 cc Omnipaque 300. One or more of the following individualized dose reduction techniques were utilized for this examination: 1. Automated exposure control 2. Adjustment of the mA and/or kV according to patient size 3. Use of iterative reconstruction technique thin cut coronal and sagittal reconstructions. FINDINGS: There is extensive soft tissue swelling over the right cheek, right orbit and right temporal scalp. No soft tissue gas. No focal fluid collection to suggest abscess. No post septal edema or post septal fluid collection at the right orbit. There are mildly enlarged bilateral cervical chain lymph nodes, right greater than left. No periapical abscess at the mandible or maxilla. Mild mucosal thickening of the ethmoid air cells. The paranasal sinuses and mastoid air cells and middle ears are otherwise clear. Limited imaged portions the brain parenchyma are unremarkable. No acute bony abnormality. IMPRESSION: 1. Extensive soft tissue swelling over the right face and temporal right scalp consistent with history of cellulitis. There is no drainable abscess or soft tissue gas at this time. 2. Cervical chain lymphadenopathy, right greater than left, likely reactive. 3. Minimal sinus disease. Electronically signed by: Sukumar Patel MD (01/16/2021 9:12 PM) [facility] Heart Score C/O Chest Pain: No Risk Factors: Risk Factors: DM, Current or recent (<one month) smoker, HTN, HLP, family history of CAD, obesity. Risk Scores: Risk Factors: DM, Current or recent (<one month) smoker, HTN, HLP, family history of CAD, obesity. Course & Med Decision Making Course & Med Decision Making Patient is a 25-year-old female who presents with right-sided facial swelling for 2 days despite outpatient treatment that was prescribed from this emergency department 2 days earlier Vital signs not concerning. Physical exam noted above. Patient given pain medicine. Blood cultures obtained. Imaging read down with similar but worsening findings but no drainable fluid collection. Patient given IV Vanco and clindamycin. Discussed findings with patient and recommended admission for continued evaluation and treatment of her facial and periorbital cellulitis with IV antibiotics and pain medicine. Patient refused saying she does not want to stay in the hospital as she has children at home and wants to try a different oral antibiotic even though her Augmentin failed. Discussed the serious ramifications of this including significant illness, sepsis, involuntary hospital stay in the intensive care unit, disability and even . Patient states that she understood and would like to try that she does not want to stay in the hospital. Advised to take antibiotics as prescribed. Advised on pain management. Advised to follow-up first thing Monday with her primary care physician and request a follow- up for wound reevaluation that day or soon as possible. Gave strict return precautions to the ED. Patient grateful, verbalized understanding and agreed with AMA. [] Dragon Disclaimer Dragon Disclaimer This electronic medical record was generated, in whole or in part, using a voice recognition dictation system. Departure Departure: Disposition: LEFT AGAINST MEDICAL ADVICE Condition: STABLE Referrals: FESTUS CALHOUN DO (PCP) Patient Instructions: Facial Infection, Periorbital Cellulitis Additional Instructions: Thank you for coming into the emergency department tonight and allowing us to take care of you. Please read all of the attached information carefully to go back over what we discussed. It was recommended to you that you be admitted to the hospital for IV antibiotics given the seriousness of your facial and pe riorbital infection and the fact that you were here in the emergency department 2 days ago, have been taking your antibiotics and failed outpatient treatment. We discussed the risks if you did not stay including severe illness due to infection, infection spreading into the blood, into the brain causing meningitis, sepsis or septicemia or severe septic shock putting you back in the hospital in the intensive care unit, and in the worst case scenarios permanent issues including disability and even . You stated that you could not stay in the emergency department despite all of these risks and wanted to try outpatient treatment 1 more time and you stated he would come back if it got worse. You urged again, to reconsider but decided to stay for 1 dose of IV antibiotics and started on a different antibiotic as an outpatient. Please follow-up with your primary care physician first thing Monday to update on ED visit and request a post ER follow-up visit immediately for wound recheck preferably Monday or Monday. Please come back to the ED immediately with new or concerning symptoms as discussed. You are given 2 doses of IV antibiotics in the emergency department and a prescription for a new antibiotic. You are also given oral antibiotics to take at home at approximately 2 AM this morning to bridge you until you are able to get to the pharmacy first thing in the morning to fill your prescriptions. Scripts Clindamycin Hcl (CLINDAMYCIN HCL) 300 Mg Capsule 1 CAP PO Q6HRS for cellulitis for 10 Days, #40 CAP Prov: MARCELA SALINAS MD 01/16/21 MARCELA SALINAS MD Jan 16, 2021 20:01
[2021-01-16] MEDS ORDERED: IOHEXOL 300 MG/ML 75 ML VIAL. IV ONE (20:15)
[2021-01-16 20:38] LABS: BASO % 1 % (0-3); EOS # 0.3 x10^3/uL (0.0-0.7); EOS % 4 % (0-3); HEMATOCRIT 32.2 % (36.0-47.0); HEMOGLOBIN 10.5 g/dL (12.0-15.5); LYMPH # 2.2 x10^3/uL (1.0-4.8); LYMPH % 29 % (24-48); MEAN CORPUSCULAR HEMOGLOBIN 28 pg (25-35); MEAN CORPUSCULAR HGB CONC 33 g/dL (31-37); MEAN CORPUSCULAR VOLUME 85 fL (79-100); MONO # 0.4 x10^3/uL (0.0-1.1); MONO % 5 % (0-9); NEUT # 4.6 x10^3uL (1.8-7.7); NEUT % 61 % (31-73); PLATELET COUNT 265 x10^3/uL (140-400); RED BLOOD COUNT 3.79 x10^6/uL (3.50-5.40); RED CELL DISTRIBUTION WIDTH 15.2 % (11.5-14.5); WHITE BLOOD COUNT 7.6 x10^3/uL (4.0-11.0)
[2021-01-16 20:46] LABS: CREATININE 0.5 mg/dL (0.6-1.0); GFR 151.6; POTASSIUM 3.2 mmol/L (3.5-5.1)
[2021-01-16] MEDS ORDERED: IV NORMAL SALINE 500ML 500 ML ONE (20:55)
[2021-01-16] MEDS ORDERED: VANCOMYCIN 1 GM VIAL. ONE (20:56)
--- NOTE | 2021-01-16 21:15 | RAD ---
CT maxillofacial with contrast dated 01/08/2021. No comparison available. CLINICAL INDICATION: Right-sided periorbital edema and cellulitis. Chills. TECHNIQUE: Contiguous axial imaging the maxillofacial bones obtained following the intravenous demonstration of 70 cc Omnipaque 300. One or more of the following individualized dose reduction techniques were utilized for this examinat ion: 1. Automated exposure control 2. Adjustment of the mA and/or kV according to patient size 3. Use of iterative reconstruction technique thin cut coronal and sagittal reconstructions. FINDINGS: There is extensive soft tissue swelling over the right cheek, right orbit and right temporal scalp. N o soft tissue gas. No focal fluid collection to suggest abscess. No post septal edema or post septal fluid collection at the right orbit. There are mildly enlarged bilateral cervical chain lymph nodes, right greater than left. No periapica l abscess at the mandible or maxilla. Mild mucosal thickening of the ethmoid air cells. The paranasal sinuses and mastoid air cells and middle ears are otherwise clear. Limited imaged portions the brain parenchyma are unremarkable. No acute bony abnormality. IMPRESSION: 1. Extensive soft tissue swelling over the right face and temporal right scalp consistent with histor y of cellulitis. There is no drainable abscess or soft tissue gas at this time. 2. Cervical chain lymphadenopathy, right greater than left, likely reactive. 3. Minimal sinus disease. Electronically signed by: Sukumar Patel MD (01/16/2021 9:12 PM) [facility]
[2021-01-16 23:20] VITALS: BP 110/56
[2021-01-16] MEDS ORDERED: CLINDAMYCIN HCL 150 MG CAPSULE ONE (23:27)
[2021-01-16] MEDS ORDERED: CLINDAMYCIN HCL 150 MG CAPSULE PO ONE (23:30)
== END 2021-01-16 23:30 | disposition left against medical advice (07) ==
LOC: ER 19:30
DX: R22.0 Localized swelling, mass and lump, head (principal); Z88.0 Allergy status to penicillin; Z88.1 Allergy status to other antibiotic agents; Z91.040 Latex allergy status; Z88.8 Allergy status to other drugs, medicaments and biological substances
CPT/HCPCS: 36415; 70487; 80048; 85025; 87040; 96365; 96366; 96367; 96375; 99285; J2270; J3370; J3490; J7040; Q9967